=== PATIENT | male | born 1935 | race Caucasian/White ===

== ENCOUNTER 2016-10-29 04:51 | Emergency (ER) | payer BC ==
[~2016-10-29] VITALS: Ht 180.3 cm; Wt 76.2 kg
[~2016-10-29 04:51] MED LIST: ASPCH81 PO; ATEN50TA8 PO; BUDE180I INH; CHOL200010 PO; CLC100X PO; FERR325T51 PO; HYDR25TA4 PO; LACT3000 PO; MELA1TAB54 PO; POTA1TAB97 PO; PROP1SOL OP; PSYL0.524 PO; RIVA1TAB4 PO; RSTOPS OPB; TIOT1AER INH; TYLOTC500 PO; ZLF/50 PO
[2016-10-29 04:54] VITALS: TEMP 36.9; Ht 180.3 cm; Wt 76.2 kg
[2016-10-29] MEDS ORDERED: DULO-24 PO (05:19)
[2016-10-29] MEDS ORDERED: GABA-112 PO (05:20)
[2016-10-29] MEDS ORDERED: METR-163 PO (05:25)
[2016-10-29] MEDS ORDERED: CIPR1TAB11 PO (05:28)
[2016-10-29] MEDS ORDERED: SERT-234 PO (05:32)
[2016-10-29] MEDS ORDERED: FLM4 PO (05:34)
[2016-10-29] MEDS ORDERED: SULF800T23 PO (05:39)
--- NOTE | 2016-10-29 05:52 | EMERGENCY ROOM VISIT NOTE ---
History Report prepared by Sang: Jo Kulkarni Under the Supervision of: Dr. Sharee Nathan M.D. First contact with patient: 05:05 Chief Complaint: URINARY SYMPTOMS Stated Complaint: URINARY RETENTION Nursing Triage Summary: Patient recently started on Tomiaz. Now c/o urinary retention. History of Present Illness The patient is a 81 year old male who presents to the Emergency Room with complaints of worsening urinary symptoms since yesterday. The patient notes urinary retention and states that he was only able to urinate in small amounts. He reports increased frequency. This morning he had a difficult time urinating and was not able to void completely. He saw his urologist, Dr. Diallo, a couple of weeks ago and was diagnosed with a nodule on his prostate. The patient denies abdominal pain. 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 The patient has obtained relief after having a urinary catheter placed by the nursing staff in the ED. Source of History: patient Onset: yesterday Position: other (urinary bladder) Quality: other (retention) Timing: worsening Modifying Factors (Worsening): other (prostate nodule) Modifying Factors (Relieving): other (urinary catheter) Associated Symptoms: No abdominal pain Review of Systems See HPI for pertinent positives & negatives. A total of 10 systems reviewed and were otherwise negative. 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, heart (13) SIRS (systemic inflammatory response syndrome) (14) TIA (transient ischemic attack) Surgical Problems: (1) Hx of CABG Family History Diabetes mellitus FH: cancer FH: heart disease Hypertension Kidney disease Kidney stones Social History Smoking Status: Never Smoker Drug Use: none Marital Status: Housing Status: lives with significant other Occupation Status: retired Current/Historical Medications Scheduled Aspirin (Aspirin Tab-Chewable *), 81 MG PO QAM Atenolol (Tenormin), 50 MG PO DAILY Budesonide (Inhalation) (Pulmicort Flexhaler), 2 PUFFS INH BID Cholecalciferol (Vitamin D), 2,000 UNITS PO HS Cyclosporine (Restasis Eye Drops), 1 DROP OPB BID Duloxetine HCl (Cymbalta), 20 MG PO DAILY Gabapentin (Neurontin), 100 MG PO TID Hydrochlorothiazide (Hctz), 25 MG PO QAM Melatonin (Melatonin), 5 MG PO HS Potassium Chloride (K-Tab), 20 MEQ PO QAM Sertraline (Zoloft), 100 MG PO DAILY Sulfa/Trimethoprim (Bactrim Ds 800MG/160MG), 1 TAB PO DAILY Tamsulosin HCl (Tamsulosin HCl), 0.4 MG PO DAILY Tiotropium [place]-Olodaterol (Stiolto Respimat 2.5-2.5 Mcg/Act), 2 PUFFS INH QAM Scheduled PRN Acetaminophen (Tylenol), 500 MG PO Q4 PRN for Pain or Fever Lactase (Lactaid), 1 TAB PO for WITH MILK PRODUCTS Propylene Glycol (Ophth) (Systane Balance Restorati), 1 DROP OPB QID PRN for DRYNESS Allergies Coded Allergies: NSAIDs (Verified Allergy, Severe, asthma, 01/25/16) Buprenorphine (Unverified Allergy, Mild, RASH, 01/25/16) Penicillins (Verified Allergy, Mild, RASH, 01/25/16) RASH Statins (Verified Allergy, Mild, RASH, 01/25/16) muscle pains BEE STING (Verified Allergy, Unknown, ANAPHYLAXIS, 01/25/16) Lactose Intolerance (Unverified Allergy, Unknown, GI SYMPTOMS, 01/25/16) Epinephrine (Verified Adverse Reaction, Intermediate, "FOR DENTAL WORK I FEEL HORRIBLE THE WHOLE DAY", 01/25/16) Uncoded Allergies: OPIODS (Adverse Reaction, Severe, ADDICTION, 05/13/16) Physical Exam Vital Signs Date Time Temp Pulse Resp B/P Pulse Ox O2 Delivery O2 Flow Rate FiO2 10/29/16 06:08 88 18 127/80 97 10/29/16 04:54 36.9 68 18 142/95 97 Room Air Physical Exam Vital signs reviewed. General: Well-appearing 81-year-old male, in no significant distress. HEENT: No scleral icterus, PERRLA, neck supple. Atraumatic. Cardiovascular: Regular rate and rhythm, no extra sounds. Pulmonary: Clear to auscultation bilaterally, normal work of breathing. Abdomen: Soft, nontender, nondistended, positive bowel sounds. Urinary catheter in place. Musculoskeletal: Atraumatic, no peripheral edema. Neurologic: Patient awake alert and oriented x 3 Skin: Warm, dry, no rash Medical Decision & Procedures Laboratory Results Test 10/29/16 05:20 Urine Color YELLOW Urine Appearance CLEAR (CLEAR) Urine pH 6.5 (4.5-7.5) Urine Specific [place] 1.015 (1.000-1.030) Urine Protein NEG (NEG) Urine Glucose (UA) NEG (NEG) Urine Ketones NEG (NEG) Urine Occult Blood NEG (NEG) Urine Nitrite NEG (NEG) Urine Bilirubin NEG (NEG) Urine Urobilinogen NEG (NEG) Urine Leukocyte Esterase NEG (NEG) Laboratory results per my review. ED Course 0510: Past medical records reviewed. The patient was evaluated in room A4B. A complete history and physical examination was performed. The patient has obtained relief after having a urinary catheter placed by the nursing staff in the ED. 0545: I reassessed the patient at this time. He is feeling better and resting comfortably. I discussed the results and treatment plan with the patient. I answered all pertaining questions that he had. He expressed understanding and verbalized agreement. The patient will be discharged home. Medical Decision Differential diagnosis: Etiologies such as renal colic, appendicitis, diverticulitis, mesenteric ischemia, aortic pathology, infections, inflammatory bowel disease, PUD, biliary pathology, UTI, as well as others were entertained. This pt was evaluated and appeared to be in no distress. Pt was feeling much improved after urinary catheter was placed. UA is negative. Pt will f/u with urology this week for reevaluation. He was given salmeron cath care instructions. He will return to the ED for worsening of symptoms or any medical concerns. Impression Primary Impression: Urinary retention Scribe Attestation The scribe's documentation has been prepared under my direction and personally reviewed by me in its entirety. I confirm that the note above accurately reflects all work, treatment, procedures, and medical decision making performed by me. Departure Information Dispostion Home / Self-Care Referrals Michael Peterson M.D. (PCP) Forms HOME CARE DOCUMENTATION FORM, IMPORTANT VISIT INFORMATION Patient Instructions ED Catheter Care Evelina Salmeron [facility] Additional Instructions Diagnosis: Urinary retention Drink plenty of clear fluids. Please read the urinary catheter handout. Follow-up with urology next week for reevaluation. Return to the ER for worsening of symptoms or any medical concerns.
[2016-10-29 06:08] VITALS: BP 127/80; PULSE 88; O2SAT 97
[2016-10-29 06:32] LABS: MANUAL MICROSCOPIC REQUIRED? NO; URINE APPEARANCE CLEAR (CLEAR); URINE BILIRUBIN NEG (NEG); URINE COLOR YELLOW; URINE NITRITE NEG (NEG); URINE PH 6.5 (4.5-7.5); URINE SPECIFIC GRAVITY 1.015 (1.000-1.030); UROBILINOGEN NEG (NEG)
[2016-10-29 06:34] LABS: REVIEW REQ? NO; ZZURINE CULT IF INDIC CATH NO
[2017-01-15] MEDS ORDERED: ULT50 PO (10:16)
[2017-01-15] MEDS ORDERED: OXYC1TAB3 PO (11:36)
== END 2016-10-29 06:09 | disposition home or self-care (01) ==
LOC: C.EDB 04:52 → C.EDA 06:09
DX: N40.3 Nodular prostate with lower urinary tract symptoms (principal); R33.9 Retention of urine, unspecified; I10 Essential (primary) hypertension; J44.9 Chronic obstructive pulmonary disease, unspecified; Z86.73 Personal history of transient ischemic attack (TIA), and cerebral infarction without residual deficits; Z95.1 Presence of aortocoronary bypass graft; Z83.3 Family history of diabetes mellitus; Z82.49 Family history of ischemic heart disease and other diseases of the circulatory system; Z79.82 Long term (current) use of aspirin

== ENCOUNTER 2017-01-14 00:23 | Observation (INO) | payer BC ==
[~2017-01-14] VITALS: Ht 175.3 cm; Wt 71.6 kg
[~2017-01-14 00:23] MED LIST changes: -CLC100X PO; +DULO-24 PO; -FERR325T51 PO; +FLM4 PO; +GABA-112 PO; -PSYL0.524 PO; -RIVA1TAB4 PO; +SERT-234 PO; +SULF800T23 PO; -ZLF/50 PO
[2017-01-14] MEDS ORDERED: SODIUM CHLORIDE 0.9% 1000ML 1,000 ML IV STA (00:47)
[2017-01-14] MEDS ORDERED: SODIUM CHLORIDE 0.9% 500ML 500 ML IV STA (00:47)
--- NOTE | 2017-01-14 00:57 | EMERGENCY ROOM VISIT NOTE ---
History Report prepared by Scribe: Jennifer Phillips Under the Supervision of: Dr. Sharee Nathan M.D. First contact with patient: 00:30 Chief Complaint: DEHYDRATION Stated Complaint: LEATHARGY/ POSSIBLE SEPSIS Nursing Triage Summary: Patient arrived ALS for evaluation s/p fall. Patients reports he fell on top of her tonight. Patient has been more lethargic over the last couple days. Per EMS, upon their arrival, patient was shallow breathing and not responding to tactile stimuli. Patient has severely dry mucus membranes and per , patient has stopped eating solid foods but she is able to get applesauce, pudding, and ice cream into him. Patient lives at home but is to be moved into [facility] in a few days. Upon arrival to ED, patient drowsy but awakens with verbal stimuli and answers all questions appropriately. Patient was given NSS 500 ml bolus by EMS. History of Present Illness The patient is a 81 year old male who presents to the Emergency Room via ALS with complaints of being persistently lethargic starting about a week and a half ago. The patient had a sudden loss of appetite about a week and a half ago. He stopped eating solid foods all together and was drinking liquids only. He has been confused at times. He has been sitting with his eyes closed, and he would not interact too much. His hand has been fluttering. He currently denies any pain. He has not had a fever, or any other complaints. He has been on antibiotics since May 2016. He does not have any history of liver disease. He has a history of COPD, triple bypass, sepsis, and AAA. HPI is obtained as per . Source of History: spouse/significant other Onset: about a week and a half ago Position: other (global) Symptom Intensity: No pain Quality: other (lethargic) Timing: other (persistent) Associated Symptoms: No fevers Review of Systems See HPI for pertinent positives & negatives. A total of 10 systems reviewed and were otherwise negative. 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, heart (14) SIRS (systemic inflammatory response syndrome) (15) TIA (transient ischemic attack) Surgical Problems: (1) Hx of CABG Family History Diabetes mellitus FH: cancer FH: heart disease Hypertension Kidney disease Kidney stones Social History Smoking Status: Never Smoker Drug Use: none Marital Status: Housing Status: lives with significant other Occupation Status: retired Current/Historical Medications Scheduled Aspirin (Aspirin Low Dose), 1 TAB PO DAILY Atenolol (Tenormin), 50 MG PO DAILY Budesonide (Inhalation) (Pulmicort Flexhaler), 2 PUFFS INH BID Cholecalciferol (Vitamin D), 2,000 UNITS PO HS Cyclosporine (Ophth) (Restasis), 1 DROP OP BID Doxycycline Hyclate (Doxycycline Hyclate), 100 MG PO BID Duloxetine HCl (Cymbalta), 40 MG PO DAILY Fesoterodine Fumarate (Toviaz), 4 MG PO DAILY Gabapentin (Neurontin), 100 MG PO TID Hydrochlorothiazide (Hctz), 25 MG PO QAM Melatonin (Melatonin), 5 MG PO HS Potassium Chloride (Klor-Con M20), 20 MEQ PO DAILY Propylene Glycol (Ophth) (Systane Balance Restorati), 1 DROP OP BID Sertraline (Zoloft), 100 MG PO DAILY Tamsulosin HCl (Tamsulosin HCl), 0.4 MG PO HS Tiotropium [place]-Olodaterol (Stiolto Respimat 2.5-2.5 Mcg/Act), 2 PUFFS INH QAM Trospium Chloride (Trospium Chloride), 20 MG PO BID Scheduled PRN Lactase (Lactaid), 1 TAB PO UD PRN for WITH MILK PRODUCTS Tramadol HCl (Tramadol HCl), 50 MG PO TID PRN for Pain Allergies Coded Allergies: NSAIDs (Verified Allergy, Severe, asthma, 01/14/17) Buprenorphine (Unverified Allergy, Mild, RASH, 01/14/17) Penicillins (Verified Allergy, Mild, RASH, 01/14/17) RASH Statins (Verified Allergy, Mild, RASH, 01/14/17) muscle pains BEE STING (Verified Allergy, Unknown, ANAPHYLAXIS, 01/14/17) Epinephrine (Verified Adverse Reaction, Intermediate, "FOR DENTAL WORK I FEEL HORRIBLE THE WHOLE DAY", 01/14/17) Uncoded Allergies: OPIODS (Adverse Reaction, Severe, ADDICTION, 05/13/16) Physical Exam Vital Signs Date Time Temp Pulse Resp B/P Pulse Ox O2 Delivery O2 Flow Rate FiO2 01/14/17 04:00 132/76 01/14/17 03:31 122/70 01/14/17 03:30 76 25 01/14/17 03:00 133/78 01/14/17 02:30 76 28 131/75 01/14/17 02:23 77 24 01/14/17 02:01 139/82 01/14/17 01:53 77 27 01/14/17 01:23 77 25 01/14/17 01:00 128/76 01/14/17 00:53 78 26 01/14/17 00:30 129/81 01/14/17 00:26 36.4 80 16 157/89 92 Room Air 01/14/17 00:24 81 Physical Exam Vital signs reviewed. General: Chronically ill-appearing, cachectic, in no significant distress. HEENT: No scleral icterus, PERRLA, neck supple. Atraumatic. Dry mucous membranes. Cardiovascular: Regular rate and rhythm, no extra sounds. Pulmonary: Clear to auscultation bilaterally, normal work of breathing. Abdomen: Soft, nontender, nondistended, positive bowel sounds. Musculoskeletal: Atraumatic, no peripheral edema. Neurologic: Patient is somnolent but arousable, answers questions appropriately , equal strength in all 4 extremities but diffusely weak. Cranial nerves 2 through 12 grossly intact. Skin: Warm, dry, no rash Medical Decision & Procedures ER Provider Diagnostic Interpretation: X-ray results as stated below per interpretation by me: CHEST X-RAY Post sternotomy changes, no focal lung consolidation, and no failure. CT results as stated below per my review and radiologist interpretation: CT HEAD Motion and streak artifacts. There is slight increased extra-axial density along the left cerebral convexity , for example on image 24 of series 2. Trace amount of acute subdural hemorrhage not excluded. Recommend short-term follow up. No CT evidence of acute infarct. No mass effect or midline shift or hydrocephalus. Age-related changes. Sinus disease. Radiologist: Petros Cordero MD Laboratory Results Test 01/14/17 01:15 01/14/17 01:27 01/14/17 02:00 Immature Granulocyte % (Auto) 0.6 % White Blood Count 24.83 K/uL (4.8-10.8) Red Blood Count 4.14 M/uL (4.7-6.1) Hemoglobin 12.3 g/dL (14.0-18.0) Hematocrit 36.7 % (42-52) Mean Corpuscular Volume 88.6 fL (80-100) Mean Corpuscular Hemoglobin 29.7 pg (25-34) Mean Corpuscular Hemoglobin Concent 33.5 g/dl (32-36) Platelet Count 305 K/uL (130-400) Mean Platelet Volume 9.1 fL (7.4-10.4) Neutrophils (%) (Auto) 89.5 % Lymphocytes (%) (Auto) 2.9 % Monocytes (%) (Auto) 6.8 % Eosinophils (%) (Auto) 0.2 % Basophils (%) (Auto) 0.0 % Neutrophils # (Auto) 22.22 K/uL (1.4-6.5) Lymphocytes # (Auto) 0.72 K/uL (1.2-3.4) Monocytes # (Auto) 1.69 K/uL (0.11-0.59) Eosinophils # (Auto) 0.05 K/uL (0-0.5) Basophils # (Auto) 0.01 K/uL (0-0.2) Immature Granulocyte # (Auto) 0.14 K/uL (0.00-0.02) Red Blood Cell Morphology Unremarkable Prothrombin Time 12.8 SECONDS (9.0-12.0) Prothromb Time International Ratio 1.2 (0.9-1.1) Activated Partial Thromboplast Time 29.9 SECONDS (21.0-31.0) Partial Thromboplastin Ratio 1.2 Magnesium Level 2.4 mg/dl (1.8-2.4) Total Bilirubin 0.7 mg/dl (0.2-1) Direct Bilirubin 0.2 mg/dl (0-0.2) Aspartate Amino Transf (AST/SGOT) 46 U/L (15-37) Alanine Aminotransferase (ALT/SGPT) 51 U/L (12-78) Alkaline Phosphatase 110 U/L (45-117) Ammonia < 10.0 umol/L (11-32) Total Creatine Kinase 32 U/L (39-308) Creatine Kinase MB 0.7 ng/ml (0.5-3.6) Creatine Kinase MB Ratio 2.2 (0-3.0) Total Protein 7.3 gm/dl (6.4-8.2) Albumin 2.5 gm/dl (3.4-5.0) Bedside Lactic Acid Venous 1.06 mmol/L (0.90-1.70) Bedside Troponin I 0.110 ng/ml (0-0.045) Urine Color YELLOW Urine Appearance CLEAR (CLEAR) Urine pH 5.0 (4.5-7.5) Urine Specific [place] 1.019 (1.000-1.030) Urine Protein NEG (NEG) Urine Glucose (UA) NEG (NEG) Urine Ketones NEG (NEG) Urine Occult Blood NEG (NEG) Urine Nitrite NEG (NEG) Urine Bilirubin NEG (NEG) Urine Urobilinogen NEG (NEG) Urine Leukocyte Esterase NEG (NEG) Laboratory results per my review. Medications Administered Medications (Trade) Dose Ordered Sig/Peggy Route Start Time Stop Time Status Last Admin Dose Admin Sodium Chloride 500 ml @ 999 mls/hr Q31M STAT IV 01/14/17 00:47 01/14/17 01:17 DC 01/14/17 00:47 999 MLS/HR Sodium Chloride (Nss 1000ml) 1,000 ml @ 125 mls/hr Q8H STAT IV 01/14/17 00:47 01/14/17 06:19 DC 01/14/17 00:47 125 MLS/HR ECG Indication: other (Lethargic) Rate (beats per minute): 78 Rhythm: sinus rhythm Findings: PAC, other (Poor quality baseline for interpretation; nonspecific st changes in the lateral leads ) Change: Repeat EKG showed sinus rhythm, occasional PVCs, prolonged QT with QTC of 492, no acute ischemic changes. ED Course 0030: Past medical records reviewed. The patient was evaluated in room B06. A complete history and physical examination was performed. 0047: Sodium Chloride 1000 ml @ 125 mls/hr IV, Sodium Chloride 500 ml @ 999 mls/ hr IV 0319: Upon reevaluation, the patient is resting comfortably. I discussed laboratory and radiographic results with the patient and his family. They verbalized agreement of the treatment plan. [facility] The patient will be evaluated for further management and care. Medical Decision Differential diagnosis: Etiologies such as metabolic, infection, hypo/hyperglycemia, electrolyte abnormalities, cardiac sources, intracranial hemorrhage, intracranial mass, CVA , toxicologic, neurologic, as well as others were entertained. This patient was evaluated and appeared to be in no significant distress. The patient is chronically ill and dehydrated on exam. Patient does have a diminished level of consciousness however he is arousable and answers most questions appropriately. The patient is chronically ill and has not been eating well. He was hydrated with normal saline solution. Head CT was performed and reveals a subdural hemorrhage. Radiology has requested repeat imaging in several hours to verify placement of the subdural hemorrhage. After a discussion with the patient and his , was determined that they would prefer to stay at our facility despite the fact that we do not have a neurosurgeon. The patient is interested in end-of-life discussions and declined any neurosurgical intervention if it becomes indicated. He was feeling slightly improved after IV hydration. His laboratory work was discussed with he and his . He will be evaluated by the hospitalist service for further management. Consults Time Called: [phone] Consulting Physician: Dr. Alvarez of the [facility] Hospitalist Service Returned Call: [phone] Alvarez of the [facility] Hospitalist Service. Impression Primary Impression: Subdural hemorrhage Additional Impressions: Acute renal failure Dehydration Elevated troponin Scribe Attestation The scribe's documentation has been prepared under my direction and personally reviewed by me in its entirety. I confirm that the note above accurately reflects all work, treatment, procedures, and medical decision making performed by me. Departure Information Dispostion Being Evaluated By Hospitalist Referrals Michael Peterson M.D. (PCP) Patient Instructions My [facility] Problem Qualifiers
[2017-01-14 01:33] LABS: HEMATOCRIT 36.7 % (42-52); MEAN CELL VOLUME 88.6 fL (80-100); MEAN CORPUSCULAR HEMOGLOBIN 29.7 pg (25-34); MEAN CORPUSCULAR HGB CONC 33.5 g/dl (32-36); MEAN PLATELET VOLUME 9.1 fL (7.4-10.4); PLATELET COUNT 305 K/uL (130-400); RED BLOOD COUNT 4.14 M/uL (4.7-6.1); WHITE BLOOD COUNT 24.83 K/uL (4.8-10.8)
[2017-01-14 01:46] LABS: INR 1.2 (0.9-1.1); PARTIAL THROMBOPLASTIN RATIO 1.2; PROTHROMBIN TIME (PATIENT) 12.8 SECONDS (9.0-12.0)
[2017-01-14 01:51] LABS: BUN/CREATININE RATIO 33.6 (10-20); CALCIUM 9.1 mg/dl (8.5-10.1); CREATININE 2.7 mg/dl (0.60-1.40); MAGNESIUM 2.4 mg/dl (1.8-2.4); POTASSIUM 3.9 mmol/L (3.5-5.1)
[2017-01-14 01:56] LABS: BASO ABS # 0.01 K/uL (0-0.2); CKMB/CK RATIO 2.2 (0-3.0); COMPLETE YES; EOS % 0.2 %; IG% 0.6 %; LYMPH % 2.9 %; LYMPH ABS # 0.72 K/uL (1.2-3.4); MONO % 6.8 %; NEUT % 89.5 %
[2017-01-14] MEDS ORDERED: ASPI1TAB48 PO (02:18)
[2017-01-14 02:19] LABS: URINE APPEARANCE CLEAR (CLEAR); URINE BILIRUBIN NEG (NEG); URINE COLOR YELLOW; URINE NITRITE NEG (NEG); URINE SPECIFIC GRAVITY 1.019 (1.000-1.030); UROBILINOGEN NEG (NEG); ZZURINE CULT IF INDIC CATH NO
[2017-01-14] MEDS ORDERED: VBRT100 PO (02:19)
[2017-01-14] MEDS ORDERED: MCRK20 PO (02:21)
[2017-01-14] MEDS ORDERED: CYCL0.052 OP (02:23)
[2017-01-14] MEDS ORDERED: FESO4TAB PO (02:27)
[2017-01-14] MEDS ORDERED: SNC/20 PO (02:27)
[2017-01-14] MEDS ORDERED: ULT50 PO (02:27)
[2017-01-14 02:32] LABS: MANUAL MICROSCOPIC REQUIRED? NO; REVIEW REQ? NO
[2017-01-14] MEDS ORDERED: ONDANSETRON INJ 2 MG/ML 2 ML VIAL IV PRN (04:00)
[2017-01-14] MEDS ORDERED: ALUMINUM/MAGNESIUM/SIMETH (MAALOX MAX) 30 ML UDC PO PRN (04:00)
[2017-01-14] MEDS ORDERED: MAGNESIUM HYDROXIDE SUSP 30 ML UDC PO PRN (04:00)
[2017-01-14] MEDS ORDERED: ACETAMINOPHEN 325 MG TAB PO PRN (04:00)
[2017-01-14] MEDS ORDERED: TRAMADOL HCL 50 MG TAB PO PRN (04:00)
[2017-01-14] MEDS: D5W AND NSS 1,000 ML IV SCH ×2 (04:30→12:57)
[2017-01-14] MEDS ORDERED: POLYETHYLENE (MIRALAX) 17 GM PACK PO PRN (05:00)
--- NOTE | 2017-01-14 05:02 | History and Physical ---
History & Physical Date & Time of Service: Jan 14, 2017 at 04:29 Chief Complaint: Leathargy/ Possible Sepsis Primary Care Physician: Michael Peterson M.D. History of Present Illness Source: patient, spouse 81 y/o M w/history of COPD, CAD, recent treatment for an aortic graft infection. Pt was on hospice due to sepsis 05/19 but recovered his baseline function and was D/Cd from hospice as a result. He is looked after by his and she states that he has been rapidly deteriorating over the past 2 weeks. He has exhibited progressively garbled speech, dysphagia, poor intake and weakness. Today she was transferring him and they both fell. Following this she called EMS. She did not report that the pt sustained significant head trauma and he himself has no specific complaints of pain. A CT of the head was obtained which could not exclude a trace subdural hemorrhage. Initially the pt was to be admitted for a repeat CT however the pt and his have both decided that they would not seek treatment for an expanding hematoma. Labs were obtained in the ER which revealed ARF, likely due to dehydration, in addition to leukocytosis. He has not had fevers and continues to take oral antibiotics due to his graft infection. As his realized she could not care for him adequately, she has already made arrangements to place him in a long-term. He will be assigned to observation pending placement. 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 12) High PSA - suspected CA - no workup done to confirm Surgical Problems: (1) Hx of CABG Status: Resolved Family History Diabetes mellitus FH: cancer FH: heart disease Hypertension Kidney disease Kidney stones Noncontributory Social History 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 Smoking Status: Former Smoker Drug Use: none Marital Status: Housing status: lives with significant other Occupational Status: retired Immunizations History of Influenza Vaccine: Yes History of Tetanus Vaccine?: No History of Pneumococcal: Yes History of Hepatitis B Vaccine: No Multi-Drug Resistant Organisms History of MDRO: No Allergies Coded Allergies: NSAIDs (Verified Allergy, Severe, asthma, 01/14/17) Buprenorphine (Unverified Allergy, Mild, RASH, 01/14/17) Penicillins (Verified Allergy, Mild, RASH, 01/14/17) RASH Statins (Verified Allergy, Mild, RASH, 01/14/17) muscle pains BEE STING (Verified Allergy, Unknown, ANAPHYLAXIS, 01/14/17) Lactose Intolerance (Unverified Allergy, Unknown, GI SYMPTOMS, 01/14/17) Epinephrine (Verified Adverse Reaction, Intermediate, "FOR DENTAL WORK I FEEL HORRIBLE THE WHOLE DAY", 01/14/17) Uncoded Allergies: OPIODS (Adverse Reaction, Severe, ADDICTION, 05/13/16) Home Medications Scheduled Aspirin (Aspirin Low Dose), 1 TAB PO DAILY Atenolol (Tenormin), 50 MG PO DAILY Budesonide (Inhalation) (Pulmicort Flexhaler), 2 PUFFS INH BID Cholecalciferol (Vitamin D), 2,000 UNITS PO HS Cyclosporine (Ophth) (Restasis), 1 DROP OP BID Doxycycline Hyclate (Doxycycline Hyclate), 100 MG PO BID Duloxetine HCl (Cymbalta), 40 MG PO DAILY Fesoterodine Fumarate (Toviaz), 4 MG PO DAILY Gabapentin (Neurontin), 100 MG PO TID Hydrochlorothiazide (Hctz), 25 MG PO QAM Melatonin (Melatonin), 5 MG PO HS Potassium Chloride (Klor-Con M20), 20 MEQ PO DAILY Propylene Glycol (Ophth) (Systane Balance Restorati), 1 DROP OP BID Sertraline (Zoloft), 100 MG PO DAILY Tamsulosin HCl (Tamsulosin HCl), 0.4 MG PO HS Tiotropium [place]-Olodaterol (Stiolto Respimat 2.5-2.5 Mcg/Act), 2 PUFFS INH QAM Trospium Chloride (Trospium Chloride), 20 MG PO BID Scheduled PRN Lactase (Lactaid), 1 TAB PO UD PRN for WITH MILK PRODUCTS Tramadol HCl (Tramadol HCl), 50 MG PO TID PRN for Pain Review of Systems Constitutional: + fatigue, + weakness, + weight loss, No chills, No fever, No sweats Eyes: No eye pain, No worsening of vision ENT: + trouble swallowing, No hearing loss, No nasal symptoms, No unusual epistaxis Respiratory: No cough, No sputum, No wheezing Cardiovascular: No PND, No chest pain, No orthopnea Abdomen: No nausea, No pain, No vomiting Musculoskeletal: No joint pain, No muscle pain Genitourinary - Male: No dysuria, No hematuria, No urinary frequency, No urinary urgency Neurologic: + problem reported (Chronic weakness of RLE), No memory loss, No paralysis Psychiatric: No depression symptoms Endocrine: + fatigue Hematologic / Lymphatic: No abnormal bleeding/bruising Integumentary: No rash Allergic / Immunologic: No environmental allergies Physical Exam Vital Signs Date Time Temp Pulse Resp B/P Pulse Ox O2 Delivery O2 Flow Rate FiO2 01/14/17 02:23 77 24 01/14/17 02:01 139/82 01/14/17 01:53 77 27 01/14/17 01:23 77 25 01/14/17 01:00 128/76 01/14/17 00:53 78 26 01/14/17 00:30 129/81 01/14/17 00:26 36.4 80 16 157/89 92 Room Air 01/14/17 00:24 81 General Appearance: + pertinent finding (Pleasant elderly male - AAO - speech is garbled but seems to have good comprehension) Head: normocephalic, atraumatic Eyes: normal inspection, PERRL, EOMI ENT: + pertinent finding (Dry mucosal membranes - no thrush, bruits, icterus) Neck: supple, no JVD Respiratory/Chest: chest non-tender, lungs clear, + pertinent finding (Poor B/ L air entry without crackles or wheezing) Cardiovascular: regular rate, rhythm, no edema, no gallop Abdomen/GI: normal bowel sounds, non tender, soft Back: normal inspection Extremities/Musculoskelatal: normal inspection Neurologic/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: 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, alert, + pertinent finding (Pt is globally weak - speech is garbled - slow to answer questions - appears oriented and without acute focal defecits) Skin: + pertinent finding (areas of hyperpigmentation) Diagnostics Laboratory Results Results Past 24 Hours Test 01/14/17 01:15 01/14/17 01:27 01/14/17 02:00 Range/Units White Blood Count 24.83 4.8-10.8 K/uL Red Blood Count 4.14 4.7-6.1 M/uL Hemoglobin 12.3 14.0-18.0 g/dL Hematocrit 36.7 42-52 % Mean Corpuscular Volume 88.6 80-100 fL Mean Corpuscular Hemoglobin 29.7 25-34 pg Mean Corpuscular Hemoglobin Concent 33.5 32-36 g/dl Platelet Count 305 130-400 K/uL Mean Platelet Volume 9.1 7.4-10.4 fL Neutrophils (%) (Auto) 89.5 % Lymphocytes (%) (Auto) 2.9 % Monocytes (%) (Auto) 6.8 % Eosinophils (%) (Auto) 0.2 % Basophils (%) (Auto) 0.0 % Neutrophils # (Auto) 22.22 1.4-6.5 K/uL Lymphocytes # (Auto) 0.72 1.2-3.4 K/uL Monocytes # (Auto) 1.69 0.11-0.59 K/uL Eosinophils # (Auto) 0.05 0-0.5 K/uL Basophils # (Auto) 0.01 0-0.2 K/uL RDW Standard Deviation 47.5 36.4-46.3 fL RDW Coefficient of Variation 14.7 11.5-14.5 % Immature Granulocyte % (Auto) 0.6 % Immature Granulocyte # (Auto) 0.14 0.00-0.02 K/uL Red Blood Cell Morphology Unremarkable Prothrombin Time 12.8 9.0-12.0 SECONDS Prothromb Time International Ratio 1.2 0.9-1.1 Activated Partial Thromboplast Time 29.9 21.0-31.0 SECONDS Partial Thromboplastin Ratio 1.2 Sodium Level 142 136-145 mmol/L Potassium Level 3.9 3.5-5.1 mmol/L Chloride Level 106 98-107 mmol/L Carbon Dioxide Level 27 21-32 mmol/L Anion Gap 9.0 3-11 mmol/L Blood Urea Nitrogen 91 7-18 mg/dl Creatinine 2.70 0.60-1.40 mg/dl Est Creatinine Clear Calc Drug Dose 20.7 ml/min Estimated GFR () 24.2 Estimated GFR (Non- 20.9 BUN/Creatinine Ratio 33.6 10-20 Random Glucose 109 70-99 mg/dl Calcium Level 9.1 8.5-10.1 mg/dl Magnesium Level 2.4 1.8-2.4 mg/dl Total Bilirubin 0.7 0.2-1 mg/dl Direct Bilirubin 0.2 0-0.2 mg/dl Aspartate Amino Transf (AST/SGOT) 46 15-37 U/L Alanine Aminotransferase (ALT/SGPT) 51 12-78 U/L Alkaline Phosphatase 110 45-117 U/L Ammonia < 10.0 11-32 umol/L Total Creatine Kinase 32 39-308 U/L Creatine Kinase MB 0.7 0.5-3.6 ng/ml Creatine Kinase MB Ratio 2.2 0-3.0 Total Protein 7.3 6.4-8.2 gm/dl Albumin 2.5 3.4-5.0 gm/dl Bedside Lactic Acid Venous 1.06 0.90-1.70 mmol/L Bedside Troponin I 0.110 0-0.045 ng/ml Urine Color YELLOW Urine Appearance CLEAR CLEAR Urine pH 5.0 4.5-7.5 Urine Specific [place] 1.019 1.000-1.030 Urine Protein NEG NEG Urine Glucose (UA) NEG NEG Urine Ketones NEG NEG Urine Occult Blood NEG NEG Urine Nitrite NEG NEG Urine Bilirubin NEG NEG Urine Urobilinogen NEG NEG Urine Leukocyte Esterase NEG NEG Microbiology Results 01/14/17 Blood Culture, Received Pending 01/14/17 Blood Culture, Received Pending Diagnostic Radiology Possibility of trace hemorrhage along the cerebellar convexity. EKG Sinus - no acute ischemic changes Impression Assessment and Plan 81 y/o M w/history of COPD, CAD, recent treatment for an aortic graft infection. Pt was on hospice due to sepsis 05/19 but recovered his baseline function and was D/Cd from hospice as a result. He is looked after by his and she states that he has been rapidly deteriorating over the past 2 weeks. He has exhibited progressively garbled speech, dysphagia, poor intake and weakness. Today she was transferring him and they both fell. Following this she called EMS. A CT of the head was obtained which could not exclude a trace subdural hemorrhage. Initially the pt was to be admitted for a repeat CT however the pt and his have both decided that they would not seek treatment for an expanding hematoma. Labs were obtained in the ER which revealed ARF, likely due to dehydration, in addition to leukocytosis. He has not had fevers and continues to take oral antibiotics due to his graft infection. 1) Fall - possibility of small subdural - will not be treated and therefore we will not obtain further imaging. 2) Aortic graft infection - cont current antibiotics - he has leukocytosis an we will obtain a UA to r/o additional infectious source. 3) Progressive dysphagia and garbled speech - no evidence of CVA on CT and symptoms have been present for several days. Requested swallow eval to determine diet consistency - no further workup. 4) ARF - IVF and recheck BMP - diuretic held 5) COPD - cont current treatment - no complaints of related symptoms at present. 6) Functional decline - PT/OT ordered - NH placement initiated by pts prior to arrival. DNR/DNI - Anticoag contraindicated Total time for this admit including review of labs, meds, records, imaging - discussion with pt and ER MD - 45 min Level of Care Telemetry Resuscitation Status DO NOT RESUSCITATE VTE Prophylaxis VTE Risk Assessment Done? Y/N: Yes Risk Level: Moderate Given or contraindicated: Contraindicated
[2017-01-14] MEDS ORDERED: IV FLUIDS COMPLETED PRN (05:30)
[2017-01-14 06:15] VITALS: BP 168/86; TEMP 36.7; O2SAT 99; Ht 175.3 cm; Wt 71.6 kg
[2017-01-14 06:29] VITALS: BP 168/86; PULSE 86; TEMP 36.7; O2SAT 99
[2017-01-14] MEDS: STIOLTO~ORDER AWAITING ACTION SCH ×2 (07:08→16:00)
[2017-01-14] MEDS: RESTASIS~ORDER AWAITING ACTION SCH ×2 (07:08→16:00)
[2017-01-14] MEDS: TROSPIUM~ORDER AWAITING ACTION SCH ×2 (07:08→16:00)
[2017-01-14] MEDS: SYSTANE~ORDER AWAITING ACTION SCH ×2 (07:08→16:00)
[2017-01-14] MEDS: TOVIAZ~ORDER AWAITING ACTION SCH ×2 (07:08→16:00)
--- NOTE | 2017-01-14 07:34 | DIAGNOSTIC IMAGING REPORT ---
HEAD CT NONCONTRAST CT DOSE: 998.18 mGy.cm HISTORY: Altered mental status. TECHNIQUE: Multiaxial CT images of the head were performed without the use of intravenous contrast. Automated exposure control was utilized for this study. Comparison: Head CT 01/08/2015. Findings: The paranasal sinuses and mastoid air cells are clear. The calvarium and skull base are intact. There is a small left-sided acute on chronic subdural hematoma measuring up to 4 mm in thickness. This is new from the prior study. There is approximately 2 mm of right midline shift. Atrophy and microvascular ischemic changes are again noted. There is no acute infarct or mass. Impression: A small left-sided acute on chronic subdural hematoma measuring up to 4 mm in thickness. This results in approximately 2 mm of right midline shift. [address] follow-up is recommended. Electronically signed by: Shaheen Erickson M.D. 01/14/2017 7:32 AM Dictated Date/Time: 01/14/2017 7:28 AM
[2017-01-14 08:00] VITALS: BP 137/81; PULSE 71; TEMP 36.5; O2SAT 96
[2017-01-14] MEDS ORDERED: NON-FORMULARY MEDICATION (Cyclosporine (Ophth) (Restasis) 1 DROP) OP SCH (08:00)
[2017-01-14] MEDS ORDERED: PROPYLENE GLYCOL OP SCH (08:00)
[2017-01-14] MEDS ORDERED: NON-FORMULARY MEDICATION (Fesoterodine Fumarate (Toviaz) 4 MG) PO SCH (08:00)
[2017-01-14] MEDS ORDERED: BOOST VANILLA PO SCH ×4 (08:00→14:00)
[2017-01-14] MEDS ORDERED: [UNRECOGNIZED DRUG - OTHER] INH SCH (08:00)
[2017-01-14 08:02] VITALS: BP 137/81; PULSE 71; TEMP 36.5; O2SAT 96
--- NOTE | 2017-01-14 08:34 | DIAGNOSTIC IMAGING REPORT ---
CHEST ONE VIEW PORTABLE HISTORY: Altered mental status. COMPARISON: Chest 05/13/2016. FINDINGS: There are poststernotomy changes. The heart is normal in size. No new focal lung consolidations to suggest pneumonia. No evidence for pulmonary edema. There is suggestion of a 1.4 cm left upper lobe pulmonary nodule. No pleural effusions. No pneumothorax. Bilateral shoulder osteoarthritis. IMPRESSION: 1. No acute process within the chest. 2. Possible 1.4 cm nodule within the left upper lobe. Follow-up PA and lateral views the chest is recommended for further evaluation. Electronically signed by: Shaheen Erickson M.D. 01/14/2017 8:32 AM Dictated Date/Time: 01/14/2017 8:29 AM
[2017-01-14] MEDS: DULOXETINE HCL 20 MG CAP PO SCH (08:54)
[2017-01-14] MEDS: BUDESONIDE 90 MCG INH INH SCH ×2 (08:54→19:34)
[2017-01-14] MEDS: GABAPENTIN 100 MG CAP PO SCH ×3 (08:55→19:34)
[2017-01-14] MEDS: SERTRALINE HCL 100 MG TAB PO SCH (08:55)
[2017-01-14] MEDS: DOXYCYCLINE HYCLATE 100 MG CAP PO SCH ×2 (08:55→19:33)
[2017-01-14 12:48] LABS: BUN/CREATININE RATIO 32.7 (10-20); CALCIUM 8.9 mg/dl (8.5-10.1); CREATININE 2.6 mg/dl (0.60-1.40); POTASSIUM 3.7 mmol/L (3.5-5.1)
[2017-01-14 13:20] LABS: HEMATOCRIT 36.8 % (42-52); MEAN CELL VOLUME 90.6 fL (80-100); MEAN CORPUSCULAR HEMOGLOBIN 29.8 pg (25-34); MEAN CORPUSCULAR HGB CONC 32.9 g/dl (32-36); MEAN PLATELET VOLUME 9.1 fL (7.4-10.4); PLATELET COUNT 290 K/uL (130-400); RED BLOOD COUNT 4.06 M/uL (4.7-6.1); WHITE BLOOD COUNT 21.18 K/uL (4.8-10.8)
--- NOTE | 2017-01-14 14:35 | Progress Note ---
Progress Note Date of Service Jan 14, 2017. Progress Note Patient admitted this morning by hospitalist service. Plan will be as stated per history and physial except the following: repeat CT Head, repeat CBC, decrease IVF to 75 cc/hour
[2017-01-14 15:41] VITALS: BP 127/79; PULSE 72; TEMP 36.5; O2SAT 92
--- NOTE | 2017-01-14 15:55 | DIAGNOSTIC IMAGING REPORT ---
CT SCAN OF THE BRAIN WITHOUT IV CONTRAST CLINICAL HISTORY: Follow-up subdural hematoma. COMPARISON STUDY: CT of the brain performed earlier the same day 01/14/2017 there TECHNIQUE: Unenhanced axial CT scan of the brain is performed from the vertex to the skull base. CT DOSE: 810.83 mGy.cm FINDINGS: Brain parenchyma: There is a small subdural hematoma along the left convexity. This has likely minimally increased in size from earlier today, now measuring up to 6 mm in maximum thickness (previously measured up to 4 mm). There is only left right midline shift measuring 2.5 mm. There are age-related involutional changes noting moderate subcortical and periventricular microangiopathic change. There is no parenchymal hematoma or evidence of acute territorial ischemia by CT criteria. A small chronic lacunar infarct is noted in the right cerebellar hemisphere. Narvaez-white matter is preserved. Ventricles, sulci, cisterns: Prominent secondary to involutional change. Intracranial vasculature: There is atherosclerotic calcification of the cavernous carotid and vertebral arteries. Calvarium: The skeletal structures are osteopenic. No depressed calvarial fracture is seen. Sinuses and mastoids: Trace mucosal thickening is seen within the left maxillary antrum. The remaining visualized paranasal sinuses are clear. The mastoid air cells are well pneumatized. Orbits: The bony orbits are grossly intact. There are bilateral ocular lens implants. IMPRESSION: 1. Slight increase in size of a subdural hematoma along the left convexity as compared to earlier today. There is minimal associated mass effect with approximately 2.5 mm of [id number] midline shift. 2. There is no parenchymal hematoma or evidence of acute territorial ischemia by CT criteria. Electronically signed by: Raul Turcios M.D. 01/14/2017 3:53 PM Dictated Date/Time: 01/14/2017 3:49 PM
[2017-01-14] MEDS: BOOST VANILLA PO SCH ×2 (17:18)
[2017-01-14] MEDS: NYSTATIN SUSP 500,000 U/5 ML UDC PO SCH ×2 (17:38→19:33)
[2017-01-14 19:48] VITALS: BP 135/79; PULSE 75; TEMP 36.5; O2SAT 95
[2017-01-14] MEDS ORDERED: TAMSULOSIN HCL 0.4 MG CAP PO SCH (21:00)
[2017-01-15 00:02] VITALS: BP 129/79; PULSE 83; TEMP 36.8; O2SAT 94
[2017-01-15] MEDS: D5W AND NSS 1,000 ML IV SCH (02:35)
[2017-01-15 04:32] VITALS: BP 148/86; PULSE 82; TEMP 36.7; O2SAT 93
[2017-01-15 06:42] LABS: HEMATOCRIT 35.2 % (42-52); MEAN CELL VOLUME 91.2 fL (80-100); MEAN CORPUSCULAR HEMOGLOBIN 29.8 pg (25-34); MEAN CORPUSCULAR HGB CONC 32.7 g/dl (32-36); MEAN PLATELET VOLUME 9.1 fL (7.4-10.4); PLATELET COUNT 264 K/uL (130-400); RED BLOOD COUNT 3.86 M/uL (4.7-6.1); WHITE BLOOD COUNT 20.64 K/uL (4.8-10.8)
[2017-01-15 07:19] LABS: BUN/CREATININE RATIO 33.3 (10-20); CALCIUM 8.8 mg/dl (8.5-10.1); CREATININE 2.4 mg/dl (0.60-1.40); POTASSIUM 3.3 mmol/L (3.5-5.1)
[2017-01-15 09:06] VITALS: BP 133/80; PULSE 78; TEMP 36.8; O2SAT 93
[2017-01-15] MEDS: RESTASIS~ORDER AWAITING ACTION SCH ×2 (09:30)
[2017-01-15] MEDS: BOOST VANILLA PO SCH ×4 (09:30→12:30)
[2017-01-15] MEDS: STIOLTO~ORDER AWAITING ACTION SCH ×2 (09:30)
[2017-01-15] MEDS: TOVIAZ~ORDER AWAITING ACTION SCH ×2 (09:30)
[2017-01-15] MEDS: TROSPIUM~ORDER AWAITING ACTION SCH ×2 (09:30)
[2017-01-15] MEDS: SYSTANE~ORDER AWAITING ACTION SCH ×2 (09:30)
[2017-01-15] MEDS: BUDESONIDE 90 MCG INH INH SCH (09:32)
[2017-01-15] MEDS: NYSTATIN SUSP 500,000 U/5 ML UDC PO SCH ×2 (09:34→12:56)
[2017-01-15] MEDS: DULOXETINE HCL 20 MG CAP PO SCH (09:34)
[2017-01-15] MEDS: GABAPENTIN 100 MG CAP PO SCH ×2 (09:35→13:53)
[2017-01-15] MEDS: SERTRALINE HCL 100 MG TAB PO SCH (09:36)
[2017-01-15] MEDS: DOXYCYCLINE HYCLATE 100 MG CAP PO SCH (09:36)
[2017-01-15] MEDS ORDERED: ULT50 PO (10:16)
[2017-01-15] MEDS ORDERED: OXYC1TAB3 PO (11:36)
[2017-01-15 11:55] VITALS: BP 163/87; PULSE 91; TEMP 36.9; O2SAT 94
--- NOTE | 2017-01-15 12:39 | Discharge Instructions ---
Discharge Instructions Admission Admission Date: Jan 14, 2017 at 04:16 Admission Diagnosis: FALL,. Discharge Care Plan - Problem: Medical Problems: (1) Acute renal failure (2) Dehydration (3) Elevated troponin (4) Subdural hemorrhage Care Plan - Goal(s): Decrease discomfort, Improve function Care Plan - Instructions: Activity Recommendations: no limitations Recommended Home Diet: Pureed Provider Instructions: Patient should be evaluated by hospice care VTE Core Measure Inpt VTE Proph given/why not?: Contraindicated Ankit Cedeno Recommendations: Call your doctor if: * Temperature above 101 degrees * Pain not relieved by pain medicine ordered * There is increased drainage or redness from any incision * You have any unanswered questions or concerns. Your Doctors Instructions noted above were prepared by provider Liliam Kirk.
[2017-01-15] MEDS: MoRPHine SULFATE 2 MG/ML CARP IV PRN ×2 (12:56→13:57)
[2017-01-15 13:19] VITALS: BP 163/87; PULSE 91; TEMP 36.9; O2SAT 94
[2017-01-15] MEDS ORDERED: NURSING VERBAL MED ORDER ONE (13:45)
[2017-01-15] MEDS ORDERED: OXYCODONE HCL IR 5 MG TAB (IMMEDIATE RELEASE) PO SCH (13:50)
--- NOTE | 2017-01-15 17:06 | Discharge Summary ---
Discharge Summary Date of Service Jan 15, 2017. Discharge Summary Admission Date: Jan 14, 2017 at 04:16 Discharge Date: Jan 15, 2017 Discharge Disposition: Home Principal Diagnosis: Fall/Acute Kindey Injury Immunizations: Have You Had Influenza Vaccine: Yes History of Tetanus Vaccine?: No History of Pneumococcal: Yes History of Hepatitis B Vaccine: No Medication Reconciliation New Medications: Oxycodone Ir (Roxicodone Ir) 5 Mg Tab 5 MG PO Q4H PRN for Severe Pain for 30 Days, #30 TAB Continued Medications: Aspirin (Aspirin Low Dose) 81 Mg Tab 1 TAB PO DAILY Atenolol (Tenormin) 50 Mg Tab 50 MG PO DAILY, 0 Refills Budesonide (Inhalation) (Pulmicort Flexhaler) 180 Mcg/Act Inh 2 PUFFS INH BID Cholecalciferol (Vitamin D) 2,000 Unit Cap 2000 UNITS PO HS Cyclosporine (Ophth) (Restasis) 0.05 % Emu 1 DROP OP BID, BTL Doxycycline Hyclate (Doxycycline Hyclate) 100 Mg Tab 100 MG PO BID Duloxetine HCl (Cymbalta) 20 Mg Cap 40 MG PO DAILY Fesoterodine Fumarate (Toviaz) 4 Mg Tab 4 MG PO DAILY, 3 Refills Gabapentin (Neurontin) 100 Mg Cap 100 MG PO TID, CAP Lactase (Lactaid) 3,000 Unit Tab 1 TAB PO UD PRN for WITH MILK PRODUCTS Melatonin (Melatonin) 5 Mg Tab 5 MG PO HS Potassium Chloride (Klor-Con M20) 20 Meq Tabcr 20 MEQ PO DAILY Propylene Glycol (Ophth) (Systane Balance Restorati) 0.6 % Shauna 1 DROP OP BID Sertraline (Zoloft) 100 Mg Tab 100 MG PO DAILY, TAB Tamsulosin HCl (Tamsulosin HCl) 0.4 Mg Cap 0.4 MG PO HS Tiotropium [place]-Olodaterol (Stiolto Respimat 2.5-2.5 Mcg/Act) 1 Aer Aer 2 PUFFS INH QAM, #4 Tramadol HCl (Tramadol HCl) 50 Mg Tab 50 MG PO TID PRN for Pain for 30 Days, #60 (This prescription has been renewed) Trospium Chloride (Trospium Chloride) 20 Mg Tab 20 MG PO BID Discontinued Medications: Hydrochlorothiazide (Hctz) 25 Mg Tab 25 MG PO QAM, TAB Discharge Exam Review of Systems: Constitutional: No chills, No fever Eyes: No worsening of vision ENT: No hearing loss Respiratory: No cough, No shortness of breath Cardiovascular: No chest pain Abdomen: No nausea, No pain, No vomiting Musculoskeletal: + joint pain, + muscle pain Genitourinary - Female: No dysuria Genitourinary - Male: No dysuria, No hematuria Neurologic: No memory loss, No weakness Endocrine: No fatigue Integumentary: No itch, No rash Physical Exam: General Appearance: WD/WN, no apparent distress Eyes: normal inspection ENT: normal ENT inspection Neck: supple Respiratory/Chest: chest non-tender, lungs clear Cardiovascular: regular rate, rhythm, no edema Abdomen / GI: normal bowel sounds, non tender, soft Extremities: normal inspection 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 Pt was on hospice due to sepsis 05/19 but recovered his baseline function and was D/Cd from hospice as a result. He is looked after by his and she states that he has been rapidly deteriorating over the past 2 weeks. He has exhibited progressively garbled speech, dysphagia, poor intake and weakness. Today she was transferring him and they both fell. Following this she called EMS. A CT of the head was obtained which could not exclude a trace subdural hemorrhage. Ct scan showed a small subdural hematoma with recommended follow up. Patient was admitted to the hospitalist service in order to [facility] as patients could no longer care for him. Patient was also noticed to have SONIA and and started on IVF. Patient and desired that patient resume hospice care at discharge at [facility]. CM was consulted and arranged a bed at [facility]. Before discharge patient had repeat CT head which exhibited minimal changed in subdural hematoma 1Fall/Functional Decline- patient transferred to [facility] for further rehab/patient to be evaluated for hospice care 2) Hx of Aortic graft infection - continued on 3) Progressive dysphagia and garbled speech - no evidence of CVA on CT and symptoms have been present for several days. Requested swallow eval to determine diet consistency -. Recommended pureed diet. Patient unable to tolerate video swallow day of discharge. Should be obtained as outpatient 4) ARF -placed on IVF. Creatinine improved Total Time Spent: Greater than 30 minutes This includes examination of the patient, discharge planning, medication reconciliation, and communication with other providers. Discharge Instructions Please refer to the electronic Patient Visit Report (Discharge Instructions) for additional information.
== END 2017-01-15 15:23 ==
LOC: ENRESERVDT → ENRESERVTM → EDBD 00:23 → C.EDB 00:24 → C.4E 04:16
PROVIDERS: ADMIT Internal Medicine; ATTEND Internal Medicine
DX: N17.9 Acute kidney failure, unspecified (principal); S06.5X0A Traumatic subdural hemorrhage without loss of consciousness, initial encounter; W19.XXXA Unspecified fall, initial encounter; T82.7XXA Infection and inflammatory reaction due to other cardiac and vascular devices, implants and grafts, initial encounter; Y83.2 Surgical operation with anastomosis, bypass or graft as the cause of abnormal reaction of the patient, or of later complication, without mention of misadventure at the time of the procedure; E86.0 Dehydration; I25.10 Atherosclerotic heart disease of native coronary artery without angina pectoris; J45.909 Unspecified asthma, uncomplicated; R64 Cachexia; I10 Essential (primary) hypertension; J44.9 Chronic obstructive pulmonary disease, unspecified; Z86.73 Personal history of transient ischemic attack (TIA), and cerebral infarction without residual deficits; Z95.1 Presence of aortocoronary bypass graft; Z83.3 Family history of diabetes mellitus; Z82.49 Family history of ischemic heart disease and other diseases of the circulatory system; Z84.1 Family history of disorders of kidney and ureter; Z79.82 Long term (current) use of aspirin; Z79.899 Other long term (current) drug therapy; Z87.891 Personal history of nicotine dependence